=== PATIENT | female | born 1970 | race Caucasian/White ===

== ENCOUNTER 2016-09-21 11:46 | Emergency (ER) | payer SELFPAY ==
[~2016-09-21] VITALS: Ht 152.4 cm; Wt 50.0 kg
[~2016-09-21 11:46] MED LIST: Z.0.NO CURRENT MEDS
[2016-09-21 11:49] VITALS: BP 139/84; PULSE 85; RESP 15; TEMP 98.2; O2SAT 98
--- NOTE | 2016-09-21 11:52 | PD ---
Physical Exam Date Seen by Provider: Sep 21, 2016 Time Seen by Provider: 11:48 MDM Supervised Visit with NAYAN: No Narrative Course 46 YO F with complaint of redness and pain of bilateral eyes time 5 days. Started in the left eye first. + tearing, crusts --vision changes. Vitals reviewed. Patient seen in triage, awaiting bed placement. Kelly Saavedra Sep 21, 2016 11:51
[2016-09-21] MEDS ORDERED: MAXI5O EACH EYE (11:55)
--- NOTE | 2016-09-21 12:00 | PD ---
HPI Chief Complaint: ENT Complaint Time Seen by Provider: 11:55 Travel History International Travel<30 days: No Contact w/Intl Traveler<30days: No Traveled to known affect area: No History of Present Illness HPI 46-year-old female presents the emergency department bilateral conjunctivitis-like symptoms for the past 5 days. Patient denies upper respiratory symptoms other than bilateral eye for, crusting, and eyelid swelling. Patient states wants her "cleaned out" her vision seems to be normal she has no cough, chest congestion, chest pain, abdominal symptoms. Pain is 5/ 10. Patient is been trying [id number] medications without improvement. She does not wear contacts. She denies injury. She has no known drug allergies. FOR[facility]LY [facility] Past Medical History Diminished Hearing: No ?: Not Past Surgical History Section: Yes Other Surgery: Yes (BREAST AUGMENTATION) Social History Alcohol Use: No Tobacco Use: Yes Substance Use: No Allergies-Medications (Allergen,Severity, Reaction): Coded Allergies: No Known Allergies (Unverified , 09/21/16) Reported Meds & Prescriptions Reported Meds & Active Scripts Active Reported No Current Meds (Miscellaneous Medication) Misc Review of Systems Except as stated in HPI: all other systems reviewed are Neg General / Constitutional: No: Fever Eyes: Positive: Photophobia, Drainage, Redness, Foreign Body Sensation, Pain, Tearing, No: Diploplia, Blurred Vision, Blind Spots, Visual changes, Blindness HENT: No: Headaches, Sore Throat, Rhinitis, Rhinorrhea, Congestion, Nosebleed, Neck Stiffness, Neck Pain, Ear Discharge, Earache Cardiovascular: No: Chest Pain or Discomfort Respiratory: No: Shortness of Breath Gastrointestinal: No: Abdominal Pain Genitourinary: No: Dysuria Musculoskeletal: No: Pain Skin: No Rash Neurologic: No: Weakness Psychiatric: No: Depression Endocrine: No: Polydipsia Hematologic/Lymphatic: No: Easy Bruising Physical Exam Narrative GENERAL: Patient appears in mild to moderate distress. SKIN: Warm and dry. Normal color. Normal turgor. HEAD: Atraumatic. Normocephalic. EYES: Pupils equal and round. No scleral icterus. Moderate bilateral injection with purulent drainage. ENT: No nasal bleeding or discharge. Mucous membranes pink and moist. Pharynx is clear. Airway is patent. NECK: Trachea midline. Supple nontender without lymphadenopathy. CARDIOVASCULAR: Regular rate and rhythm. RESPIRATORY: No accessory muscle use. Clear to auscultation. Breath sounds equal bilaterally. MUSCULOSKELETAL: Extremities without clubbing, cyanosis, or edema. No obvious deformities. NEUROLOGICAL: Awake and alert. No obvious cranial nerve deficits. Motor grossly within normal limits. Five out of 5 muscle strength in the arms and legs. Normal speech. PSYCHIATRIC: Appropriate mood and affect; insight and judgment normal. Data Data Last Documented VS Vital Signs Date Time Temp Pulse Resp B/P Pulse Ox O2 Delivery O2 Flow Rate FiO2 09/21/16 11:49 98.2 85 15 139/84 98 MDM Medical Decision Making Medical Screen Exam Complete: Yes Emergency Medical Condition: Yes Differential Diagnosis Upper respiratory infection. Allergic rhinitis. Allergic conjunctivitis. Bacterial conjunctivitis. Narrative Course Patient will be treated for bilateral conjunctivitis. Patient is given Maxitrol ophthalmic drops every 4 hours while awake for the next 7 days. Patient is given a prescription for ibuprofen 600 mg 4 times a day #40. Patient follow with branch maker or regular physician if symptoms persist. Patient can return with worsening symptoms as needed. Diagnosis Primary Impression: Conjunctivitis Qualified Code: H10.33 - Acute conjunctivitis of both eyes, unspecified acute conjunctivitis type Referrals: Professor Of Journalism as needed Patient Instructions: Conjunctivitis (ED), General Instructions Additional Instructions: Patient will be treated for bilateral conjunctivitis. Patient is given Maxitrol ophthalmic drops every 4 hours while awake for the next 7 days. Patient is given a prescription for ibuprofen 600 mg 4 times a day #40. Patient follow with branch maker or regular physician if symptoms persist. Patient can return with worsening symptoms as needed. Scripts [id number]-[id number] Opth Drops (Maxitrol Opth Drops)3.5-10,000-0.1 Mg-Units-% Susp1 Drop EACH EYE Q4H #1 BOTTLE Prov:Feliz Maria MD 09/21/16 Disposition: 01 DISCHARGE HOME Condition: Stable Yohannes Doyle Sep 21, 2016 12:00
== END 2016-09-21 12:12 | disposition home or self-care (01) ==
LOC: NEPK 11:46
DX: H10.33 Unspecified acute conjunctivitis, bilateral (principal); Z72.0 Tobacco use
CPT/HCPCS: 99283